=== PATIENT | male | born 1965 | race African-American/Black ===

== ENCOUNTER 2017-12-18 08:31 | Emergency (ER) | payer BC ==
[~2017-12-18] VITALS: Ht 180.3 cm; Wt 77.1 kg
[~2017-12-18 08:31] MED LIST: CEPHALEXIN500 MG ORAL; CYCLOBENZAPRINE10 MG ORAL; IBUPROFEN800 MG ORAL; LIDOCAINE VISCO20 ML PO; NKM; TYLENOL EXTRA500 MG ORAL
[2017-12-18 08:43] VITALS: BP 119/57
[2017-12-18] MEDS ORDERED: Neosporin Oint Ud Pkt TOP ONE (09:15)
[2017-12-18] MEDS ORDERED: Tetanus/Diptheria/Pertussis Vaccine 0.5ml Syr IM ONE (09:15)
[2017-12-18] MEDS ORDERED: Acetaminophen 500mg (ES) tab PO ONE (09:15)
[2017-12-18 09:43] VITALS: BP 121/77
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
[2017-12-18] MEDS ORDERED: TRAMADOL HCL50 MG ORAL (11:12)
[2017-12-18] MEDS ORDERED: IBUPROFEN600 MG ORAL (11:12)
[2017-12-18 12:00] VITALS: BP 118/65
--- NOTE | 2017-12-18 12:14 | Diagnostic Imaging Report ---
Indication: Trauma, pain Technique: 3 views of the cervical spine Comparison: none Findings: But alignment is normal. No prevertebral soft tissue swelling. Vertebral body heights are preserved. Disc spaces are preserved. No acute fractures. No dislocations. Impression: Negative
[2017-12-18 13:00] VITALS: BP 100/64
== END 2017-12-18 13:05 | disposition home or self-care (01) ==
LOC: EDBD 08:31 → EMR 08:57
DX: S06.0X1A Concussion with loss of consciousness of 30 minutes or less, initial encounter (principal); S13.4XXA Sprain of ligaments of cervical spine, initial encounter; S50.812A Abrasion of left forearm, initial encounter; V43.52XA Car driver injured in collision with other type car in traffic accident, initial encounter; Y92.9 Unspecified place or not applicable; Z23 Encounter for immunization
CPT/HCPCS: 72040; 90471; 90715; 99284